=== PATIENT | female | born 1980 | race Caucasian/White ===

== ENCOUNTER 2016-11-17 02:34 | Emergency (ER) | payer SELFPAY ==
--- NOTE | 2016-11-17 03:14 | ED Physician Chart ---
ED Chief Complaint/HPI - Patient Information Date Seen:: 11/17/16 Time Seen:: 03:00 Chief Complaint:: right hand wound History of Present Illness:: location: right hand severity: mild duration: one week context: pt with history of wound to right hand one week ago. reports some pain from wound, no redness, no discharge, no pus. decided to come to ER for physician eval. no paralysis, no paresthesia. mod factors: none assoc s/s: none hx from pt. Allergies:: Allergies Allergy/AdvReac Type Severity Reaction Status Date / Time No Known Allergies Allergy Verified 11/17/16 02:59 Vitals:: Vital Signs - 8 hr 11/17/16 03:00 Temp 97.8 F HR 80 RR 16 BP 105/66 O2 Sat % 98 Historian:: Patient, EMS Review:: Nurse's Note Reviewed, EMS run form Reviewed ED Review of Systems - Review of Systems General/Constitutional: No fever, No chills, No weight loss, No weakness, No diaphoresis, No edema, No loss of appetite Skin: No skin lesions, No rash, No bruising Head: No headache, No light-headedness Eyes: No loss of vision, No pain, No diplopia ENT: No earache, No nasal drainage, No sore throat, No tinnitus Neck: No neck pain, No swelling, No thyromegaly, No stiffness, No mass noted Cardio Vascular: No chest pain, No palpitations, No PND, No orthopnea, No edema Pulmonary: No SOB, No cough, No sputum, No wheezing GI: No nausea, No vomiting, No diarrhea, No pain, No melena, No hematochezia, No constipation, No hematemesis G/U: No dysuria, No frequency, No hematuria Musculoskeletal: No bone or joint pain, No back pain, No muscle pain Endocrine: No polyuria, No polydipsia Psychiatric: No prior psych history, No depression, No anxiety, No suicidal ideation Hematopoietic: No bruising, No lymphadenopathy Allergic/Immuno: No urticaria, No angioedema Neurological: No syncope, No focal symptoms, No weakness, No paresthesia, No headache, No seizure, No dizziness, No confusion, No vertigo ED Past Medical History - Past Medical History Past Medical History: No significant medical hx Family History: None Social History: Smoker, No Alcohol, No Drug Use, Single, Lives Alone Surgical History: None Psychiatricy History: None Medication: None Family Medical History - Family Member Mother History Unknown: Yes Ethnicity: Non- ED Physical Exam - Physical Examination General/Constitutional: Awake, Well-developed, well-nourished, Alert, No distress, GCS 15, Non-toxic appearing, Ambulatory Head: Atraumatic Eyes: Lids, conjuctiva normal, PERRL, EOMI Skin: Nl inspection, No rash, No skin lesions, No ecchymosis, Well hydrated, No lymphadenopathy ENMT: External ears, nose nl Neck: Nontender Respiratory: Nl effort/Exclusion, Clear to Auscultation, No Wheeze/Rhonchi/Rales Cardio Vascular: RRR, No murmur, gallop, rubs, NL S1 S2 GI: No tenderness/rebounding/guarding : No CVA tenderness Extremities: No tenderness or effusion Neuro/Psych: Alert/oriented Misc: Normal back, No paraspinal tenderness ED Assessment - Assessment General Assessment: medical decision making pt with healing wound right thenar eminence. wound is irregular shaped. approx 4 cm, no erythema, no discharge, no pus. no tenderness at wound. wound without positive findings of infection. pt given tylenol for pain complaint. no obvious signs of infection. will discharge to home. ED Septic Shock - . Is Septic Shock (SBP<90, OR Lactate>4 mmol\L) present?: No - <6hrs of presentation: Vital Signs: Vital Signs - 8 hr 11/17/16 03:00 Temp 97.8 F HR 80 RR 16 BP 105/66 O2 Sat % 98 ED Reassessment (Disposition) - Reassessment Reassessment:: pt stable while in ER Reassessment Condition:: Unchanged - Diagnosis Diagnosis:: healing 4 cm wound right hand - Aftercare/Follow up Instructions Aftercare/Follow-Up Instructions:: Refer to Discharge Instructions Notes:: go to clinic tomorrow for recheck - Patient Disposition Discharge/Transfer:: Home Condition at Disposition:: Stable
== END 2016-11-17 03:24 | disposition home or self-care (01) ==
LOC: ER 02:34
DX: S60.921A Unspecified superficial injury of right hand, initial encounter (principal); X58.XXXA Exposure to other specified factors, initial encounter; Y93.89 Activity, other specified; Y92.89 Other specified places as the place of occurrence of the external cause; Y99.9 Unspecified external cause status
CPT/HCPCS: Z7502; Z7610